=== PATIENT | female | born 1990 | race Caucasian/White ===

== ENCOUNTER 2021-03-20 22:07 | Emergency (ER) | payer OTHER ==
[2021-03-20 22:13] VITALS: BP 117/84; PULSE 77; TEMP 98.1; BMI 26.9
[2021-03-20] MEDS ORDERED: ACETAMINOPHEN 500 MG TABLET (FP) PO ONE (23:27)
[2021-03-20] MEDS ORDERED: ACETAMINOPHEN 500 MG TABLET (FP) ONE (23:33)
== END 2021-03-21 02:00 | disposition home or self-care (01) ==
LOC: JERFT 22:07 → JER 22:07 → JERFT 03-21 02:00
DX: S63.501A Unspecified sprain of right wrist, initial encounter (principal); S69.91XA Unspecified injury of right wrist, hand and finger(s), initial encounter; S20.211A Contusion of right front wall of thorax, initial encounter; W01.0XXA Fall on same level from slipping, tripping and stumbling without subsequent striking against object, initial encounter; Y93.02 Activity, running
CPT/HCPCS: 71046-TC-FY; 71101-TC-RT-FY; 73110-TC-RT-FY; 73130-TC-RT-FY; 99285-25